=== PATIENT | male | born 1940 | race Caucasian/White ===

== ENCOUNTER 2024-02-06 09:35 | Day surgery (SDC) | payer MEDICARE, BC ==
[2024-02-06] VITALS (7 sets, daily range): BP systolic 110–128; BP diastolic 56–87; PULSE 90–106; TEMP 98.3
[~2024-02-06] VITALS: Ht 177.8 cm; Wt 97.0 kg
[~2024-02-06 09:35] MED LIST: LR 1,000 ML IV SCH
[2024-02-06] MEDS ORDERED: PROTONIX 40MG T40 MG PO (11:06)
[2024-02-06] MEDS ORDERED: fentaNYL 50 MCG/ML 2 ML VIAL ONE (11:33)
[2024-02-06] MEDS ORDERED: Ondansetron 4 MG/2 ML VIAL ONE (12:53)
--- NOTE | 2024-02-06 15:08 | NUR ---
1305 PATIENT RETURNS TO [facility] [place] [facility] VIA CART. PT AWAKE AND ALERT. RESPIRATIONS UNLABORED. AMBULATED TO RECLINER CHAIR WITH 2:1 SBA. PT DENIES NAUSEA OR ABDOMINAL PAIN. HOOKED UP TO MONITOR AND VS OBTAINED. CALL LIGHT AT SIDE AND ANN () PRESENT. 1315 PATIENT TOLERATING WATER WITHOUT NAUSEA OR DIFFICULTY SWALLOWING. 1320 DR. TIPTON IN ROOM SPEAKING WITH PATIENT. 1330 D/C INSTRUCTIONS REVIEWED WITH PATIENT. PT VERBALIZED UNDERSTANDING AND A COPY OF INSTRUCTIONS PROVIDED IN D/C FOLDER. 1500 PATIENT DRESSES SELF. 1510 PATIENT DISCHARGED FROM UNIT VIA W/C TO A PERSONAL VEHICLE. PT LEFT HOSPITAL IN STABLE CONDITION.
== END 2024-02-06 15:15 | disposition home or self-care (01) ==
LOC: SDCO 09:35
DX: K80.50 Calculus of bile duct without cholangitis or cholecystitis without obstruction (principal); K21.9 Gastro-esophageal reflux disease without esophagitis; Z90.49 Acquired absence of other specified parts of digestive tract; Z87.891 Personal history of nicotine dependence; Z79.899 Other long term (current) drug therapy
CPT/HCPCS: C1769; J2405; J2704; J3010